=== PATIENT | male | born 1965 | race Caucasian/White ===

== ENCOUNTER → 2019-06-08 12:31 | Outpatient (CLI) | payer BC, SELFPAY ==
--- NOTE | ~2019-06-08 | CT_ITS ---
EXAMINATION: CT abdomen pelvis w con DATE: 06/08/2019 13:23 INDICATION: Left upper quadrant abdominal pain TECHNIQUE: Computed tomography (CT) of the abdomen and pelvis was performed with 100 cc Omnipaque 350 intravenous contrast. Automated exposure control and iterative reconstruction technique were employe d. Exam dose: 618.62 mGy-cm total exam DLP. COMPARISON: None. FINDINGS: The lung bases are clear of infiltrate or consolidation. Normal heart size. No pericardial or pleural effusion. The liver, gallbladder, bile ducts, pancreas, pancreatic duct and spleen appear normal. Normal morpho logy of the adrenal glands. Right renal anterior lower pole 11 mm cyst. There are bilateral parapelvic renal cysts. No urinary tract calculus or hydroureteronephrosis is detected. The urinary bladder is unremarkable. Moderate prominence of the prostate gland. Normal caliber of the abdominal aorta, with mild atherosclerotic calcification. No intraperitoneal or retroperitoneal or pelvic mass lesion or adenopathy or ascites. Small fat-containing left inguinal hernia. Very small fat-containing umbilical hernia. Normal appendix. Colonic diverticula; no CT evidence of diverticulitis. No bowel obstruction or intra peritoneal free air. Included skeletal structures are unremarkable other than degenerative changes of the thoracic and lum bar spine. IMPRESSION: Bilateral renal cysts Reviewed, dictated and finalized at [facility]. Reviewed, dictated and finalized at [facility]. IMPRESSION: Bilateral renal cysts
== END ==
PROVIDERS: PCP Internal Medicine; Visit Provider Internal Medicine
DX: R10.9 Unspecified abdominal pain (principal); N28.1 Cyst of kidney, acquired
CPT/HCPCS: 74177; Q9967